=== PATIENT | female | born 1975 | race Two or more races ===

== ENCOUNTER 2019-09-30 07:41 | Outpatient (CLI) | payer OTHER | END 2019-09-30 07:51 | disposition home or self-care (01) | LOC: RX STUDY 07:41 | DX: R10.33 Periumbilical pain (principal); R19.5 Other fecal abnormalities ==

== ENCOUNTER 2020-05-16 13:33 | Outpatient (CLI) | payer OTHER | END 2020-05-16 13:44 | disposition home or self-care (01) | LOC: RAD 13:33 | PROVIDERS: ATTEND Anesthesiology Pain Medicine | DX: K63.89 Other specified diseases of intestine (principal) ==